=== PATIENT | female | born 2000 | race American Indian/Alaskan Native ===

== ENCOUNTER 2020-06-03 10:27 | Emergency (ER) | payer MEDICAID ==
[2020-06-03 11:17] VITALS: BP 131/95
--- NOTE | 2020-06-03 11:32 | Emergency Department Report ---
Chief Complaint: Sore Throat Stated Complaint: SORE THROAT Time Seen by Provider: 06/03/20 11:22 - HPI History of Present Illness: 19-year-old -[place] female patient presents with complaints of congestion and sore throat for 1 day. Patient rates her throat pain as a 0-1/10 in severity. She denies any fever/chills/sweats, cough, shortness of breath, chest pain, nausea/vomiting/diarrhea, or abdominal pain. Patient states she is wanting Covid testing. Physical exam is normal. Patient provided with outpatient COVID-19 testing facility list and informed to return to the emergency department if she develops any new or worsening symptoms. Her vitals are normal, she is well-appearing, she is stable for discharge home. - Exam Vital Signs: Vital Signs 06/03/20 06/03/20 11:14 11:15 Temperature 98.2 F 98.2 F Pulse Rate 112 H 103 H Respiratory 16 16 Rate Blood Pressure 151/100 131/95 O2 Sat by Pulse 100 100 Oximetry MSE screening note: Focused history and physical exam performed. Due to findings the following was ordered: ED Medical Decision Making - Medical Decision Making 19-year-old -[place] female patient presents with complaints of congestion and sore throat for 1 day. Patient rates her throat pain as a 0-1/10 in severity. She denies any fever/chills/sweats, cough, shortness of breath, chest pain, nausea/vomiting/diarrhea, or abdominal pain. Patient states she is wanting Covid testing. Physical exam is normal. Patient provided with outpatient COVID-19 testing facility list and informed to return to the emergency department if she develops any new or worsening symptoms. Her vitals are normal, she is well-appearing, she is stable for discharge home. ED Disposition for MSE Clinical Impression: Viral URI Disposition: MED SCREENING EXAM-LEFT Is pt being admited?: No Condition: Stable Instructions: Viral Respiratory Infection Referrals: PRIMARY CARE, [Referring] - 3-5 Days ED Physical Exam - General Limitations: No Limitations General appearance: alert, in no apparent distress - Head Head exam: Present: atraumatic, normocephalic - Eye Eye exam: Present: normal appearance. Absent: conjunctival injection - ENT ENT exam: Present: normal orophraynx, mucous membranes moist - Neck Neck exam: Present: normal inspection, full ROM. Absent: lymphadenopathy - Respiratory Respiratory exam: Present: normal lung sounds bilaterally. Absent: respiratory distress - Cardiovascular Cardiovascular Exam: Present: regular rate, normal rhythm, normal heart sounds - Neurological Exam Neurological exam: Present: alert, oriented X3 - Psychiatric Psychiatric exam: Present: normal affect, normal mood - Skin Skin exam: Present: warm, dry, intact, normal color. Absent: rash ED Review of Systems ROS: Stated complaint: SORE THROAT Other details as noted in HPI Constitutional: denies: chills, diaphoresis, fever, malaise, weakness ENT: throat pain. denies: ear pain Respiratory: denies: cough, shortness of breath Cardiovascular: denies: chest pain Gastrointestinal: denies: abdominal pain, nausea, vomiting, diarrhea Genitourinary: denies: urgency, dysuria, frequency Skin: denies: rash, lesions, change in color Neurological: denies: headache Hematological/Lymphatic: denies: swollen glands
== END 2020-06-03 15:42 | disposition left against medical advice (07) ==
LOC: ED 10:27
DX: J02.9 Acute pharyngitis, unspecified (principal); Z53.21 Procedure and treatment not carried out due to patient leaving prior to being seen by health care provider